=== PATIENT | female | born 1995 | race Native Hawaiian/Other Pacific Islander ===

== ENCOUNTER 2016-10-22 17:19 | Outpatient (CLI) | payer OTHER | END 2016-10-22 19:20 | disposition home or self-care (01) | LOC: LABW 17:19 | DX: Z33.1 Pregnant state, incidental (principal) | CPT/HCPCS: 36415; 84702 ==

== ENCOUNTER 2018-06-05 14:39 | Outpatient (CLI) | payer BC, OTHER | END 2018-06-05 22:47 | disposition home or self-care (01) | LOC: RAD 14:39 | DX: M51.36 Other intervertebral disc degeneration, lumbar region (principal) ==

== ENCOUNTER 2018-11-27 10:49 | Outpatient (CLI) | payer OTHER | END 2018-11-27 19:41 | disposition home or self-care (01) | LOC: RAD 10:49 | DX: R06.2 Wheezing (principal) ==

== ENCOUNTER 2023-04-02 11:29 | Outpatient (CLI) | payer BC, OTHER | END 2023-04-02 18:54 | disposition home or self-care (01) | LOC: RAD 11:29 | PROVIDERS: ATTEND Nurse Practitioner Family | DX: M54.17 Radiculopathy, lumbosacral region (principal) ==